=== PATIENT | female | born 1950 | race Caucasian/White ===

== ENCOUNTER 2017-09-18 07:05 | Emergency (ER) | payer MEDICARE ==
[~2017-09-18] VITALS: Ht 165.1 cm; Wt 67.6 kg
[2017-09-18] MEDS ORDERED: HYDROMORPHONE INJ 2 MG/ML DISP.SYRIN IV ONE (07:30)
[2017-09-18] MEDS ORDERED: IV NS 0.9% 1,000 ML BAG IV ONE (07:30)
[2017-09-18] MEDS ORDERED: PANTOPRAZOLE 40 MG VIAL IV ONE (07:30)
[2017-09-18] MEDS ORDERED: ONDANSETRON HCL/PF 4 MG/2 ML VIAL IVP ONE (07:30)
--- NOTE | 2017-09-18 07:30 | NUR ---
KEEGANRA 89 FROM HOME C/O MID EPIGASTRIC PAIN SINCE THIS MORNING. +N/V. STARTED TAKING MACROBID YESTERDAY. IV ACCESS CLINICAL ASST. VSS. SEEN BY MD FOR EVAL. SAFETY AND COMFORT MEASURES PROVIDED. WILL MONITOR.
[2017-09-18] MEDS ORDERED: ONDANSETRON HCL/PF 4 MG/2 ML VIAL ONE (07:35)
[2017-09-18] MEDS ORDERED: PANTOPRAZOLE 40 MG VIAL ONE (07:35)
--- NOTE | 2017-09-18 07:40 | NUR ---
LIAISON OFFICER AT FOR BLOOD DRAW. PT MEDICATED ORDERED.
--- NOTE | 2017-09-18 07:41 | NUR ---
CALLED PHARMACY FOR REFILL OF DILAUDID IN THE OMNICELL.
--- NOTE | 2017-09-18 07:48 | NUR ---
PT UNABLE TO PROVIDE URINE AT THIS TIME.
[2017-09-18 07:55] LABS: BASOPHILS % (AUTO) 0.1 % (0.0-2.0); EOSINOPHILS # (AUTO) 0.2 /CMM (0.0-0.7); EOSINOPHILS % (AUTO) 0.9 % (0.0-6.0); HEMATOCRIT 36 % (33-45); HEMOGLOBIN 12.3 g/dL (11.5-14.8); LYMPHOCYTES # (AUTO) 0.8 /CMM (0.8-4.8); LYMPHOCYTES % (AUTO) 3.7 % (20.0-44.0); MEAN CORPUSCULAR HEMOGLOBIN 30 PG (26.0-33.0); MEAN CORPUSCULAR HGB CONC 34 g/dl (31.0-36.0); MEAN CORPUSCULAR VOLUME 90 fL (82-100); MONOCYTES # (AUTO) 0.4 /CMM (0.1-1.30); MONOCYTES % (AUTO) 1.8 % (2.0-12.0); NEUTROPHILS # (AUTO) 18.8 /CMM (1.8-8.9); NEUTROPHILS % (AUTO) 93.5 % (43.0-81.0); PLATELET COUNT (AUTO) 285 /CMM (150-450); RDW COEFFICIENT OF VARIATION 13.6 (11.5-15.0); RED BLOOD CELL COUNT(AUTO) 4.04 MIL/uL (4.0-5.2); WHITE BLOOD COUNT (AUTO) 20.1 K/uL (4.3-11.0)
--- NOTE | 2017-09-18 08:04 | NUR ---
PT TO CT SCAN.
[2017-09-18 08:06] LABS: ALBUMIN 3.3 g/dL (3.4-5.0); BILIRUBIN,DIRECT 0.1 mg/dL (0.0-0.2); BILIRUBIN,TOTAL 0.5 mg/dL (0.2-1.0); CALCIUM, SERUM 8.7 mg/dL (8.5-10.1); CREATININE 0.8 mg/dL (0.6-1.3); POTASSIUM 3.7 mmol/L (3.5-5.1); TOTAL PROTEIN, SERUM 7.1 g/dL (6.4-8.2)
[2017-09-18] MEDS ORDERED: HYDROMORPHONE INJ 2 MG/ML DISP.SYRIN ONE (08:28)
[2017-09-18] MEDS ORDERED: LEVOFLOXACIN 750 MG /D5W 150ML 150 ML IV ONE ×2 (08:30→08:54)
--- NOTE | 2017-09-18 08:41 | NUR ---
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
--- NOTE | 2017-09-18 09:05 | NUR ---
URINE SAMPL OBTAINED, SENT.
[2017-09-18 09:32] LABS: APPEARANCE,URINE CLEAR (CLEAR); BILIRUBIN,URINE NEGATIVE (NEGATIVE); BLOOD, URINE TRACE-INTA Ery/uL (NEGATIVE); COLOR,URINE YELLOW (YELLOW); KETONES,URINE NEGATIVE (NEGATIVE); LEUKOCYTE ESTERASE ,URINE NEGATIVE (NEGATIVE); NITRITE, URINE NEGATIVE (NEGATIVE); PROTEIN,URINE NEGATIVE (NEGATIVE); UGLUCOSE NEGATIVE (NEGATIVE); UROBILINOGEN,URINE 0.2 EU/dL (0.2)
[2017-09-18 09:57] LABS: BACTERIA,URINE None seen /HPF (None Seen); RBC,URINE 0-2 /HPF (0-2); SQUAMOUS EPITHELIAL CELL,UR None Seen /HPF (None Seen); WBC,URINE NONE SEEN /HPF (0-3)
--- NOTE | 2017-09-18 10:05 | NUR ---
IV removed. Catheter intact and site benign. Pressure and 4x4 applied to site. No bleeding noted.Patient discharged to home in stable condition. Written and verbal after care instructions given. Patient verbalizes understanding of instruction. Ambulatory with a steady gait.
[2017-09-18 10:06] VITALS: BP 122/81
== END 2017-09-18 10:16 | disposition home or self-care (01) ==
LOC: ER 07:07
DX: N12 Tubulo-interstitial nephritis, not specified as acute or chronic (principal); J45.909 Unspecified asthma, uncomplicated; Z85.3 Personal history of malignant neoplasm of breast; Z92.3 Personal history of irradiation; Z88.2 Allergy status to sulfonamides
CPT/HCPCS: 36415; 74176; 80048; 80076; 81001; 83690; 85025; 87040 ×2; 87086; 96361; 96365; 96375; 99285; A4606; C9113; J1170; J1956; J2405; J7030; 81000-TC; Z7610

== ENCOUNTER 2018-01-29 06:19 | Emergency (ER) | payer MEDICARE, OTHER ==
[~2018-01-29] VITALS: Ht 149.9 cm; Wt 68.5 kg
--- NOTE | 2018-01-29 06:25 | NUR ---
TO BED 12 A 67 YO FEMALE PT BBSELF AND C/O "N/V/HEADACHE SINCE LAST NIGHT." PATIENT IS AAOX3, VSS. NAD NOTED. SKIN WARM AND DRY. COMFORT MEASURES RENDERED.
[2018-01-29] MEDS ORDERED: HYDROCODONE/APAP 5/325MG 1 EACH TABLET PO STA (06:41)
--- NOTE | 2018-01-29 06:50 | NUR ---
STARTED A SALINE LOCK ON THE LAC G20, BLOOD DRAWN AND SENT TO LAB.
[2018-01-29] MEDS ORDERED: ONDANSETRON HCL/PF 4 MG/2 ML VIAL ONE ×2 (06:53→09:00)
[2018-01-29] MEDS ORDERED: HYDROCODONE/APAP 5/325MG 1 EACH TABLET ONE (06:53)
[2018-01-29] MEDS ORDERED: MAG HYDROX/AL HYDROX/SIMETH 30 ML UDC ONE (06:53)
[2018-01-29] MEDS ORDERED: FAMOTIDINE/PF INJ 20 MG/2 ML VIAL IV ONE ×2 (06:54→07:00)
[2018-01-29] MEDS ORDERED: MAG HYDROX/AL HYDROX/SIMETH 30 ML UDC PO ONE (07:00)
[2018-01-29] MEDS ORDERED: ONDANSETRON HCL/PF 4 MG/2 ML VIAL IVP ONE ×2 (07:00→09:00)
[2018-01-29] MEDS ORDERED: IV NS 0.9% 1,000 ML BAG IV ONE (07:00)
--- NOTE | 2018-01-29 07:02 | NUR ---
MEDICATED PATIENT ORDERED BY DR JAY.
[2018-01-29 07:03] LABS: BASOPHILS % (AUTO) 0.1 % (0.0-2.0); EOSINOPHILS % (AUTO) 1.3 % (0.0-6.0); HEMATOCRIT 34 % (33-45); HEMOGLOBIN 11.6 g/dL (11.5-14.8); LYMPHOCYTES # (AUTO) 1.1 /CMM (0.8-4.8); LYMPHOCYTES % (AUTO) 4.9 % (20.0-44.0); MEAN CORPUSCULAR HGB CONC 34 g/dl (31.0-36.0); MEAN CORPUSCULAR VOLUME 90 fL (82-100); MONOCYTES # (AUTO) 0.3 /CMM (0.1-1.30); MONOCYTES % (AUTO) 1.1 % (2.0-12.0); NEUTROPHILS % (AUTO) 92.6 % (43.0-81.0); PLATELET COUNT (AUTO) 317 /CMM (150-450); RDW COEFFICIENT OF VARIATION 13.7 (11.5-15.0); RED BLOOD CELL COUNT(AUTO) 3.83 MIL/uL (4.0-5.2); WHITE BLOOD COUNT (AUTO) 22.6 K/uL (4.3-11.0)
[2018-01-29 07:18] LABS: APPEARANCE,URINE CLEAR (CLEAR); BILIRUBIN,URINE NEGATIVE (NEGATIVE); BLOOD, URINE TRACE-INTA Ery/uL (NEGATIVE); COLOR,URINE YELLOW (YELLOW); KETONES,URINE NEGATIVE (NEGATIVE); LEUKOCYTE ESTERASE ,URINE NEGATIVE (NEGATIVE); NITRITE, URINE NEGATIVE (NEGATIVE); PROTEIN,URINE NEGATIVE (NEGATIVE); UGLUCOSE NEGATIVE (NEGATIVE); UROBILINOGEN,URINE 0.2 EU/dL (0.2)
[2018-01-29 07:23] LABS: ALBUMIN 3.4 g/dL (3.4-5.0); BILIRUBIN,DIRECT 0.1 mg/dL (0.0-0.2); BILIRUBIN,TOTAL 0.6 mg/dL (0.2-1.0); CALCIUM, SERUM 8.8 mg/dL (8.5-10.1); CREATININE 0.7 mg/dL (0.6-1.3); POTASSIUM 3.7 mmol/L (3.5-5.1); TOTAL PROTEIN, SERUM 7.5 g/dL (6.4-8.2)
--- NOTE | 2018-01-29 07:28 | NUR ---
REPORT GIVEN TO CAMERON CHARLES FOR SHANNAN.
[2018-01-29 07:39] LABS: SQUAMOUS EPITHELIAL CELL,UR Moderate /HPF (None Seen)
[2018-01-29 07:40] LABS: MUCUS,URINE Moderate /LPF (None Seen)
[2018-01-29 07:41] LABS: BACTERIA,URINE Few /HPF (None Seen)
--- NOTE | 2018-01-29 07:52 | NUR ---
MD JAY AT BEDSIDE
[2018-01-29] MEDS ORDERED: MONT10TA22 PO (07:55)
[2018-01-29] MEDS ORDERED: PREG75CA PO (07:55)
[2018-01-29] MEDS ORDERED: P-EP-92 PO (07:55)
[2018-01-29] MEDS ORDERED: TAMO20TA4 PO (07:55)
[2018-01-29] MEDS ORDERED: ASPI-1169 PO (07:55)
[2018-01-29] MEDS ORDERED: CYCL30DR EACHEYE (07:55)
[2018-01-29] MEDS ORDERED: ALBU18HF2 IH (07:55)
[2018-01-29] MEDS ORDERED: ESCI20TA PO (07:55)
[2018-01-29] MEDS ORDERED: FLUT1DIS5 IH (07:56)
[2018-01-29 08:15] LABS: BAND % (MANUAL) 5 % (0.0-5.0); LYMPHOCYTES % (MANUAL) 5 % (16-48); MONOCYTES % (MANUAL) 2 % (0-11.0); NEUTROPHILS % (MANUAL) 87 (42-76)
[2018-01-29 08:17] LABS: EOSINOPHILS % (MANUAL) 1 % (0-4)
--- NOTE | 2018-01-29 08:56 | NUR ---
verbal order dr hooper morphine 4 mg and zofran 4mg ivp x1 for headche
[2018-01-29] MEDS ORDERED: MORPHINE SULFATE INJ 4 MG/ML DISP.SYRIN ONE (09:00)
[2018-01-29] MEDS ORDERED: MORPHINE SULFATE INJ 2 MG/ML DISP.SYRIN IV ONE (09:00)
[2018-01-29] MEDS ORDERED: AMOX/CLAVULANATE 875 MG TABLET ONE (09:26)
--- NOTE | 2018-01-29 09:28 | NUR ---
IV removed. Catheter intact and site benign. Pressure and 4x4 applied to site. No bleeding noted.
--- NOTE | 2018-01-29 09:29 | NUR ---
Patient discharged to home in stable condition. Written and verbal after care instructions given. Patient verbalizes understanding of instruction.
[2018-01-29 09:30] VITALS: BP 99/64
[2018-01-29] MEDS ORDERED: AMOX/CLAVULANATE 875 MG TABLET PO ONE (09:30)
== END 2018-01-29 09:31 | disposition home or self-care (01) ==
LOC: ER 06:21
DX: K29.00 Acute gastritis without bleeding (principal); J01.90 Acute sinusitis, unspecified; D72.829 Elevated white blood cell count, unspecified; J45.909 Unspecified asthma, uncomplicated; Z85.3 Personal history of malignant neoplasm of breast; Z88.2 Allergy status to sulfonamides; Z79.82 Long term (current) use of aspirin
CPT/HCPCS: 36415; 70450; 70486; 80048; 80076; 81001; 83605; 83690; 85025; 96361; 96374; 96375; 96376; 99285; A4606; J2270; J2405 ×2; J3490; J7030; 81000-TC; Z7610